=== PATIENT | male | born 1940 | race Caucasian/White ===

== ENCOUNTER → 2021-09-10 | Outpatient (CLI) | payer MEDICARE, BC ==
[~2021-09-10] MED LIST: AMLO5TAB66 PO; ASPI-1444 PO; ATOR20TA65 PO; DESI25TA16 PO; GABA600T10 PO; ISOS30TA92 PO; METO25 PO; RIVA20TA PO
[2021-09-10 12:10] LABS: BASOPHILS % (AUTO) 0.6 % (0.0-2.0); EOSINOPHILS % (AUTO) 3.7 % (1.0-6.0); HEMATOCRIT 43.9 % (41-53); HEMOGLOBIN 14.9 g/dL (13.5-17.5); LYMPHOCYTES % (AUTO) 33.3 % (22.0-44.0); MEAN CORPUSCULAR HEMOGLOBIN 30.6 pg (26.0-34.0); MEAN CORPUSCULAR VOLUME 90 fL (80-100); MONOCYTES # (AUTO) 0.5 K/uL (0.1-1.0); MONOCYTES % (AUTO) 8.9 % (2.0-9.0); NEUTROPHILS # (AUTO) 3.2 K/uL (1.8-7.7); NEUTROPHILS % (AUTO) 53.5 % (40.0-70.0); PLATELET COUNT (AUTO) 227 K/uL (150-450); RED BLOOD CELL COUNT(AUTO) 4.88 MIL/uL (4.50-5.90); RED CELL DISTRIBUTION WIDTH 13.9 % (11.5-14.5)
[2021-09-10 12:22] LABS: ANION GAP 5 mmol/L (8-16); CARBON DIOXIDE 30 mmol/L (22-29); CHLORIDE 106 mmol/L (98-107); CREATININE 0.94 mg/dL (0.60-1.30); GLOMERULAR FILTR. RATE CALC > 60 mL/min (>60); GLUCOSE,RANDOM 125 mg/dL (70-110); POTASSIUM 4.1 mmol/L (3.5-5.1); SODIUM SERUM 141 mmol/L (136-145); UREA NITROGEN, BLOOD 13 mg/dL (7-18)
== END | disposition home or self-care (01) ==
LOC: LABPV 10:23
PROVIDERS: ATTEND Internal Medicine Cardiovascular Disease
DX: Z01.818 Encounter for other preprocedural examination (principal); Z79.01 Long term (current) use of anticoagulants
CPT/HCPCS: 80048; 85025; 85610

== ENCOUNTER 2021-09-12 07:13 | Day surgery (SDC) | payer MEDICARE, BC ==
[~2021-09-12] VITALS: Ht 171.4 cm; Wt 83.6 kg
[~2021-09-12 07:13] MED LIST changes: -AMLO5TAB66 PO; -ASPI-1444 PO; -ATOR20TA65 PO; -DESI25TA16 PO; -GABA600T10 PO; -ISOS30TA92 PO; -METO25 PO; -RIVA20TA PO; +SODIUM CHLORIDE 0.9% 1,000 ML IV ONE
[2021-09-12 08:05] LABS: COVID AG,FIA SOURCE NASOPHARYNGEAL
[2021-09-12] MEDS ORDERED: SODIUM CHLORIDE 0.9% 1,000 ML ONE (08:16)
[2021-09-12] MEDS ORDERED: HEPARIN SODIUM 1000 UNITS/NS 1,000 ML ONE (08:29)
[2021-09-12] MEDS ORDERED: IOHEXOL 300 MG/ML 50 ML VIAL ONE (08:29)
[2021-09-12] MEDS ORDERED: SODIUM BICARBONATE 50 MEQ/50 ML VIAL ONE (08:29)
[2021-09-12] MEDS ORDERED: IOHEXOL 300 MG/ML 150 ML VIAL ONE (08:29)
[2021-09-12] MEDS ORDERED: IOHEXOL 300 MG/ML 100 ML VIAL ONE (08:29)
[2021-09-12] MEDS ORDERED: LIDOCAINE/PF 1% 30 ML VIAL ONE (08:29)
[2021-09-12] MEDS ORDERED: ATOR20TA65 PO (08:59)
[2021-09-12] MEDS ORDERED: DESI25TA16 PO (08:59)
[2021-09-12] MEDS ORDERED: AMLO5TAB66 PO (08:59)
[2021-09-12] MEDS ORDERED: RIVA20TA PO (08:59)
[2021-09-12] MEDS ORDERED: METO25 PO (08:59)
[2021-09-12] MEDS ORDERED: GABA600T10 PO (08:59)
[2021-09-12] MEDS ORDERED: ISOS30TA92 PO (08:59)
[2021-09-12] MEDS ORDERED: ASPI-1444 PO (08:59)
[2021-09-12] MEDS ORDERED: DiphenhydrAMINE HCL 50 MG CAPSULE PO STA (09:13)
[2021-09-12] MEDS ORDERED: DIAZEPAM 10 MG TABLET PO STA (09:13)
[2021-09-12] MEDS ORDERED: DiphenhydrAMINE HCL 50 MG CAPSULE ONE (09:18)
[2021-09-12] MEDS ORDERED: DIAZEPAM 5 MG TABLET ONE (09:19)
[2021-09-12] MEDS ORDERED: FentaNYL CITRATE PF 100 MCG/2 ML VIAL ONE (09:51)
[2021-09-12] MEDS ORDERED: MIDAZOLAM HCL 2 MG/2 ML VIAL ONE (09:52)
[2021-09-12] MEDS ORDERED: NITROGLYCERIN 50 MG/D5% WATER 250 ML ONE (10:31)
[2021-09-12] MEDS ORDERED: VERAPAMIL HCL 2.5 MG/ML 2 ML VIAL ONE (10:31)
[2021-09-12 10:35] VITALS: BP 133/65
[2021-09-12] MEDS ORDERED: MIDAZOLAM HCL 2 MG/2 ML VIAL IVP ONE (10:45)
[2021-09-12] MEDS ORDERED: VERAPAMIL HCL 2.5 MG/ML 2 ML VIAL IARTER ONE ×2 (10:45→11:45)
[2021-09-12] MEDS ORDERED: FentaNYL CITRATE PF 100 MCG/2 ML VIAL IVP ONE (10:45)
[2021-09-12] MEDS ORDERED: LIDOCAINE 1% 30 ML/SOD BICARB 8.4% 4 ML SQ ONE (10:45)
[2021-09-12] MEDS ORDERED: HEPARIN SODIUM 1000 UNITS/NS 1,000 ML IARTER ONE (10:45)
[2021-09-12] MEDS ORDERED: NITROGLYCERIN/D5W 50 MG/250 ML IV BOTTLE IARTER ONE ×2 (10:45→11:45)
[2021-09-12] MEDS ORDERED: IOHEXOL 300 MG/ML 150 ML VIAL IARTER ONE (10:45)
[2021-09-12] MEDS ORDERED: HEPARIN SODIUM,PORCINE 5,000 UNITS/ML VIAL IVP ONE ×2 (11:00)
[2021-09-12] MEDS ORDERED: ADENOSINE 3 MG/ML 2 ML VIAL ONE (11:02)
[2021-09-12] MEDS ORDERED: ACETAMINOPHEN 325 MG TABLET PO PRN (11:30)
[2021-09-12] MEDS ORDERED: SODIUM CHLORIDE 0.9% 500 ML IV ONE (11:30)
[2021-09-12] MEDS ORDERED: ADENOSINE 3 MG/ML 2 ML VIAL IVP ONE (11:30)
[2021-09-12 11:48] VITALS: BP 129/64
== END 2021-09-12 14:40 | disposition home or self-care (01) ==
LOC: CATHLAB 07:13
PROVIDERS: ATTEND Internal Medicine Cardiovascular Disease
DX: R07.9 Chest pain, unspecified (principal); I25.10 Atherosclerotic heart disease of native coronary artery without angina pectoris; I48.91 Unspecified atrial fibrillation; E78.00 Pure hypercholesterolemia, unspecified; I10 Essential (primary) hypertension; Z79.82 Long term (current) use of aspirin; Z79.899 Other long term (current) drug therapy; Z95.5 Presence of coronary angioplasty implant and graft; Z98.890 Other specified postprocedural states; Z90.49 Acquired absence of other specified parts of digestive tract; Z87.01 Personal history of pneumonia (recurrent); Z72.89 Other problems related to lifestyle; Z88.0 Allergy status to penicillin
CPT/HCPCS: 87426; 93005; 93460; 93571; 99152; 99153; C1887; C9803; J0153; J1644; J2250; J3010; J3490 ×4; J7030; Q9967 ×2; 0501T; 99145; Z7610